=== PATIENT | female | born 1950 | race Two or more races ===

== ENCOUNTER 2019-02-03 14:47 | Emergency (ER) | payer MEDICARE, OTHER ==
[~2019-02-03] VITALS: Ht 157.5 cm; Wt 61.7 kg
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
--- NOTE | 2019-02-03 15:11 | NUR ---
BRANT HUNG AT BEDSIDE
[2019-02-03] MEDS ORDERED: KETOROLAC TROMETHAMINE INJ 30 MG/ML VIAL IM ONE (15:30)
[2019-02-03] MEDS ORDERED: KETOROLAC TROMETHAMINE INJ 30 MG/ML VIAL ONE (15:31)
--- NOTE | 2019-02-03 17:02 | NUR ---
Patient discharged to home in stable condition. Written and verbal after care instructions given. Patient verbalizes understanding of instruction.
[2019-02-03 17:05] VITALS: BP 126/58
== END 2019-02-03 17:07 | disposition home or self-care (01) ==
LOC: ER 14:49
DX: S42.021A Displaced fracture of shaft of right clavicle, initial encounter for closed fracture (principal); R07.89 Other chest pain; I10 Essential (primary) hypertension; V43.12XA Car passenger injured in collision with other type car in nontraffic accident, initial encounter; Y93.89 Activity, other specified; Y92.410 Unspecified street and highway as the place of occurrence of the external cause; Y99.8 Other external cause status
CPT/HCPCS: 71045; 73030; 96372; 99283; A4606; J1885

== ENCOUNTER 2019-06-12 19:19 | Emergency (ER) | payer MEDICARE, OTHER ==
[~2019-06-12] VITALS: Ht 157.5 cm; Wt 62.6 kg
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
--- NOTE | 2019-06-12 20:37 | NUR ---
AT THE BED SIDE
--- NOTE | 2019-06-12 21:12 | NUR ---
CALLED RADIOLOGY [facility] X RAY
--- NOTE | 2019-06-12 21:20 | NUR ---
X RAY AT THE BED SIDE
--- NOTE | 2019-06-12 22:02 | NUR ---
PT WAS PROVIDED W/ A R SHOULDER SLING PRIOR TO D/C Patient discharged to home in stable condition. Written and verbal after care instructions given. Patient verbalizes understanding of instruction.
[2019-06-12 22:03] VITALS: BP 119/78
== END 2019-06-12 22:05 | disposition home or self-care (01) ==
LOC: ER 19:22
DX: S42.001K Fracture of unspecified part of right clavicle, subsequent encounter for fracture with nonunion (principal); G89.29 Other chronic pain; I10 Essential (primary) hypertension; V49.69XD Unspecified car occupant injured in collision with other motor vehicles in traffic accident, subsequent encounter
CPT/HCPCS: 73000-TC; 73030-TC